=== PATIENT | female | born 1960 | race Caucasian/White ===

== ENCOUNTER → 2023-09-06 14:26 | Outpatient (REF) | payer OTHER, SELFPAY | LOC: RAD 14:26 | PROVIDERS: ATTENDING PHYSICIAN Surgery; FAMILY PHYSICIAN Family Medicine | DX: N13.2 Hydronephrosis with renal and ureteral calculous obstruction (principal) | CPT/HCPCS: 74018 ==

== ENCOUNTER → 2023-11-23 07:01 | Outpatient (REF) | payer OTHER, SELFPAY | LOC: HWRAD 07:01 | PROVIDERS: ATTENDING PHYSICIAN Surgery; FAMILY PHYSICIAN Family Medicine | DX: N13.2 Hydronephrosis with renal and ureteral calculous obstruction (principal) | CPT/HCPCS: 76775 ==

== ENCOUNTER → 2023-12-22 07:28 | Outpatient (REF) | payer OTHER, SELFPAY | LOC: RCS 07:28 | PROVIDERS: ATTENDING PHYSICIAN Physician Assistant Medical | DX: I10 Essential (primary) hypertension (principal); R07.89 Other chest pain; Z82.49 Family history of ischemic heart disease and other diseases of the circulatory system | CPT/HCPCS: 93017 ==

== ENCOUNTER → 2024-02-08 09:11 | Outpatient (REF) | payer OTHER, SELFPAY | LOC: HWRCS 09:11 | PROVIDERS: ATTENDING PHYSICIAN Physician Assistant Medical | DX: R07.89 Other chest pain (principal); I10 Essential (primary) hypertension; Z82.49 Family history of ischemic heart disease and other diseases of the circulatory system | CPT/HCPCS: 93306 ==

== ENCOUNTER → 2024-04-27 08:53 | Outpatient (REF) | payer OTHER, SELFPAY | LOC: HWWDC 08:53 | PROVIDERS: ATTENDING PHYSICIAN Family Medicine | DX: Z12.31 Encounter for screening mammogram for malignant neoplasm of breast (principal) | CPT/HCPCS: 77063; 77067 ==